=== PATIENT | female | born 1950 | race Caucasian/White ===

== ENCOUNTER 2017-03-13 16:17 | Emergency (ER) | payer OTHER ==
--- NOTE | ~2017-03-13 | ER ---
Unit #: [id number] #: [id number] Patient: KEIRY BETANCUR [id number] [address] [place], [place] [address] [id number] MR#: [id number] NAME: KEIRY BETANCUR ROOM: Sex: F Age: 67 : 1950 Service Date: 03/13/2017 Attending Physician: Sam Ryan M.D. Primary Care Physician: Best Evangelista M.D. EMERGENCY DEPT PHYSICIAN NOTE EMERGENCY DEPARTMENT NOTE Please see the written T-sheet for the full details of the encounter. Miss Betancur is a 67-year-old woman with a past history of PLANNING LEAD and CHF, presented to the emergency department after being referred by an immediate care center for dyspnea and low O2 sats. Initial O2 sats on room air were in the 80s. However, they improved to 92% to 93% on 3 L nasal cannula. The patient stated that the shortness of breath had been present over the last few days. She also complained of a cough productive of yellow phlegm. Laboratory data and EKG were stable and unremarkable however the chest x-ray demonstrated that the patient had increased cardiomegaly, interstitial infiltrates and mild to moderate pleural effusions bilaterally. As she was still requiring the oxygen and had a worsening of her congestive heart failure, I advised the patient that she needed to be admitted to the hospital. The patient is unwilling to be admitted to the hospital because she states that she has no one to take care of her animals at home. She was cautioned that with her pleural effusions and oxygen requirement that by leaving against medical advice she risked respiratory failure and possibly even . She accepted these risks and still wished to leave against medical advice. She will be given IV Bumex before she is allowed to leave and the patient states that she has a prescription of Bumex waiting for her at the pharmacy that she will fill tomorrow. She is encouraged to return to the emergency department should she change her mild and desire further treatment and/or admission to this facility. She is encouraged to contact and follow up with her primary doctor as soon as possible for a reevaluation. Dictated by... Sam Ryan M.D. MDR/cf TD: 03/13/2017 20:45 JOB #: [id number] Unit #: [id number] #: [id number] Patient: KEIRY BETANCUR EMERGENCY DEPT PHYSICIAN NOTE Page 1 of 1 X Sam Ryan MD EMERGENCY DEPARTMENT REPORT
--- NOTE | ~2017-03-13 | CR72 ---
[facility] A Service of [facility] RADIOLOGY TEXT RESULTS PATIENT: KEIRY BETANCUR LOCATION: [facility] : 50 UNIT #: [id number] AGE: [address]: Sam Ryan MD SEX: F ORDER DR: [id number] [facility] [address] [place], [place] [address] [id number] E MR#: [id number] Acc #: [id number] NAME: KEIRY BETANCUR. : 1950 SEX: F STUDY DATE/TIME: 03/13/2017 18:58 UNIT: [facility] ROOM: STUDY DESCRIPTION: CR Chest Single View Portable Attending Physician: Sam Ryan M.D. Ordering Physician: Sam Ryan M.D. Primary Care Physician: Best Evangelista M.D. MEDICAL IMAGING REPORT This report is preliminary unless electronic signature is present EXAM Chest portable 03/13/2017 1858 hours HISTORY 67-year-old woman with complaint of shortness of air for 3 days with decrease oxygen saturation levels today. COMPARISON 12/23/2015 FINDINGS Portable upright chest demonstrates mild cardiomegaly increased from 12/23/2015. There is pulmonary venous distension and diffuse interstitial change suggesting edema. There is blunting of both costophrenic sulci consistent with small to moderate effusions. Findings are most suggestive of congestive heart failure. IMPRESSION As compared to 12/23/2015, there is increase in size of the cardiac silhouette, new bilateral [id number]-[id number] interstitial changes and new bilateral mild to moderate pleural effusions most likely representing congestive heart failure. Dictated by... Amada Veras M.D. THIS IS AN ELECTRONICALLY VERIFIED REPORT Amada Veras M.D. at 03/14/2017 8:46 AM Hali TD: 03/14/2017 06:35 JOB #: [id number] [facility] A Service of [facility] RADIOLOGY TEXT RESULTS PATIENT: KE[facility] BETANCUR [id number] 50 UNIT #: [id number] AGE: [address]: Sam Ryan MD SEX: F ORDER DR: MEDICAL IMAGING REPORT Page 1 of 1 COPY
--- NOTE | ~2017-03-13 | EKG ---
PATIENT: KEIRY BETANCUR UNIT #: [id number] Ventricular Rate: 96 BPM Atrial Rate: 96 BPM P-R Interval: 168 ms QRS Duration: 100 ms Q-T Interval: 376 ms QTC Calculation(Bezet): 475 ms P Apison: 52 degrees Calculated R Apison: -11 degrees Calculated T Apison: 77 degrees Diagnosis Line: Sinus rhythm with occasional Premature ventricular Diagnosis Line: complexes Diagnosis Line: Possible Left atrial enlargement Diagnosis Line: Left ventricular hypertrophy Diagnosis Line: Nonspecific ST and T wave abnormality Diagnosis Line: Abnormal ECG Diagnosis Line: When compared with ECG of 23-DEC-2015 18:51, Diagnosis Line: Premature ventricular complexes are now Present Diagnosis Line: Nonspecific T wave abnormality, improved in Diagnosis Line: Lateral leads Diagnosis Line: Confirmed by TATUM FRYE MD ([id number]) on Diagnosis Line: 03/13/2017 10:25:23 PM INTERPRETING MD: PRATIK
[~2017-03-13 16:17] MED LIST: AUGMENTIN PO; AVALIDE PO; EFFEXOR XR PO; LASIX PO; LOTREL 10/20 MG1 CAP PO; MOBIC PO; NAPRELAN PO; NAPROXEN PO; REMERON PO; UNK MED PO; VICODIN 5/500 T1 TAB PO; ZETIA PO; ZYPREXA PO; ZYRTEC PO
[2017-03-13 19:00] LABS: BASOPHIL% 0.4 % (0-2.5); EOSINOPHIL% 0.2 % (0.0-7.0); HEMATOCRIT 34.3 % (35.0-45.0); LYMPHOCYTE# 0.5 X10e3 (1.0-3.5); LYMPHOCYTE% 6.1 % (17.0-45.0); MEAN CELL VOLUME 86.3 FL (83-96); MEAN CORPUSCULAR HEMOGLOBIN 27.7 PG (28-34); MEAN CORPUSCULAR HGB CONC 32.1 g/dL (30-36); MEAN PLATELET VOLUME 8.1 FL (6.5-11.5); MONOCYTE# 0.1 X10e3 (0-1.0); MONOCYTE% 1.6 % (3.0-12.0); NEUTROPHIL# 6.8 X10e3 (1.5-7.1); NEUTROPHIL% 91.7 % (40-75); PLATELET COUNT 247 X10e3 (140-420); RED BLOOD COUNT 3.98 X10e (3.90-5.30); RED CELL DISTRIBUTION WIDTH 18.5 % (11.0-15.5); WHITE BLOOD COUNT 7.5 X10e3 (4.0-10.5)
[2017-03-13 19:04] LABS: DIFF IND NO
[2017-03-13 19:25] LABS: ALBUMIN SERUM 3.6 g/dL (3.5-5.0); BILIRUBIN, DIRECT 0.6 mg/dL (0.0-0.2); BILIRUBIN,INDIRECT 1.4 mg/dL (0.0-0.9); BUN/CREATININE RATIO 16.66; CALCIUM SERUM 8.8 mg/dL (8.4-10.2); CREATININE SERUM 1.2 mg/dL (0.6-1.4); GLOM FILT RATE Estimated 46.7 mL/min (>60)
== END 2017-03-13 20:40 | disposition home or self-care (01) ==
LOC: CED 16:17
PROVIDERS: Emergency Medicine
DX: J44.1 Chronic obstructive pulmonary disease with (acute) exacerbation (principal); I50.9 Heart failure, unspecified; Z88.5 Allergy status to narcotic agent; Z79.899 Other long term (current) drug therapy; E11.9 Type 2 diabetes mellitus without complications; I10 Essential (primary) hypertension; F31.9 Bipolar disorder, unspecified; F17.200 Nicotine dependence, unspecified, uncomplicated
CPT/HCPCS: 36415; 71010; 80048; 80076; 85025; 87040; 93005; 94640; 96374; 96375; 99284; J2930